=== PATIENT | male | born 1995 | race Caucasian/White ===

== ENCOUNTER 2021-04-23 21:35 | Emergency (ER) | payer OTHER ==
[2021-04-23] MEDS ORDERED: HYDROmorphone 1 MG/ML Syringe IM ONE (22:05)
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
== END 2021-04-23 22:45 | disposition home or self-care (01) ==
LOC: JP.ED 21:35
DX: M25.561 Pain in right knee (principal)
CPT/HCPCS: 96372; 99283; J1170

== ENCOUNTER 2021-07-08 11:24 | Emergency (ER) | payer OTHER ==
[2021-07-08 13:11] LABS: CORONAVIRUS COVID-19 NAA NEGATIVE (NEGATIVE)
== END 2021-07-08 12:44 | disposition home or self-care (01) ==
LOC: JP.ED 11:24
DX: R07.89 Other chest pain (principal); Z20.822 Contact with and (suspected) exposure to COVID-19
CPT/HCPCS: 0241U; 71046; 99282; 99283-25

== ENCOUNTER 2022-04-19 12:14 | Emergency (ER) | payer MEDICAID ==
[2022-04-19] MEDS ORDERED: oxyCODONE 5 MG Tab PO ONE (12:38)
== END 2022-04-19 13:51 | disposition home or self-care (01) ==
LOC: JP.ED 12:14
DX: S63.502A Unspecified sprain of left wrist, initial encounter (principal); S60.222A Contusion of left hand, initial encounter; W18.39XA Other fall on same level, initial encounter
CPT/HCPCS: 73110; 73130; 99283; A9270

== ENCOUNTER 2023-01-27 10:46 | Emergency (ER) | payer MEDICAID, OTHER ==
[2023-01-27] MEDS ORDERED: Ketorolac 30 MG/ML SDV IM ONE (11:27)
[2023-01-27] MEDS ORDERED: Albuterol/Ipratropium 3.0-0.5 MG/3 ML Neb Soln NEB ONE (11:27)
== END 2023-01-27 13:36 | disposition home or self-care (01) ==
LOC: JP.ED 10:46
DX: R06.2 Wheezing (principal); Z87.891 Personal history of nicotine dependence
CPT/HCPCS: 71046; 94640; 96372; 99283; J1885; J7620

== ENCOUNTER 2023-02-03 10:14 | Emergency (ER) | payer OTHER | END 2023-02-03 11:10 | disposition home or self-care (01) | LOC: JP.ED 10:14 | DX: J67.9 Hypersensitivity pneumonitis due to unspecified organic dust (principal) | CPT/HCPCS: 99283; 99284 ==